=== PATIENT | male | born 1985 | race Caucasian/White ===

== ENCOUNTER 2021-11-11 09:54 | Emergency (ER) | payer OTHER ==
[2021-11-11 10:20] VITALS: TEMP 98
[2021-11-11] MEDS ORDERED: HYDROcodone/APAP 5-325MG 1 EACH TAB PO STA (10:32)
[2021-11-11] MEDS ORDERED: KETOROLAC 15 MG/ML 1 ML VIAL IM STA (10:32)
[2021-11-11] MEDS ORDERED: methocarbamoL 500 MG TAB PO STA (10:32)
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
[2021-11-11] MEDS ORDERED: LIDOCAINE 5% PATCH TOPICAL STA (12:25)
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
[2021-11-11 12:41] VITALS: BP 122/68; PULSE 88; RESP 14
== END 2021-11-11 12:40 | disposition home or self-care (01) ==
LOC: EC 09:54
DX: S66.912A Strain of unspecified muscle, fascia and tendon at wrist and hand level, left hand, initial encounter (principal); Z88.2 Allergy status to sulfonamides; V89.2XXA Person injured in unspecified motor-vehicle accident, traffic, initial encounter
CPT/HCPCS: 72170; 73030; 73110; 71046; 72128; 72125; 72131; 99284; 96372; L0120; J1885